=== PATIENT | male | born 1960 | race Two or more races ===

== ENCOUNTER 2023-12-27 16:35 | Emergency (ER) | payer OTHER ==
[~2023-12-27] VITALS: Ht 170.2 cm; Wt 83.2 kg
[2023-12-27] MEDS ORDERED: IOHEXOL 350 MG/ML 100 ML VIAL ONE (17:14)
[2023-12-27] MEDS ORDERED: SODIUM CHLORIDE 0.9% 100 ML ONE (17:14)
[2023-12-27] MEDS ORDERED: 0.9% SODIUM CHLORIDE 10 ML SYRINGE IVP PRN (17:15)
[2023-12-27 17:35] VITALS: TEMP 98.4
[2023-12-27 17:46] LABS: BASOPHILS % (AUTO) 0.4 % (0.0-2.0); EOSINOPHILS % (AUTO) 1.2 % (1.0-6.0); HEMOGLOBIN 15.2 g/dL (13.5-17.5); LYMPHOCYTES # (AUTO) 1.5 K/uL (1.0-4.8); LYMPHOCYTES % (AUTO) 10.5 % (22.0-44.0); MEAN CORPUSCULAR HEMOGLOBIN 31.7 pg (26.0-34.0); MEAN CORPUSCULAR HGB CONC 34.4 G/dL (31.0-37.0); MEAN CORPUSCULAR VOLUME 92 fL (80-100); MONOCYTES % (AUTO) 7.2 % (2.0-9.0); NEUTROPHILS # (AUTO) 11.7 K/uL (1.8-7.7); NEUTROPHILS % (AUTO) 80.7 % (40.0-70.0); PLATELET COUNT (AUTO) 243 K/uL (150-450); RED BLOOD CELL COUNT(AUTO) 4.79 MIL/uL (4.50-5.90); RED CELL DISTRIBUTION WIDTH 13.7 % (11.5-14.5); WHITE BLOOD COUNT (AUTO) 14.5 K/uL (4.5-11.0)
[2023-12-27 17:49] LABS: ANION GAP 9 mmol/L (8-16); CALCIUM, TOTAL 9.5 mg/dL (8.8-10.5); CARBON DIOXIDE 28 mmol/L (22-29); CHLORIDE 100 mmol/L (98-107); GLOMERULAR FILTR. RATE CALC > 60 mL/min (>60); GLUCOSE,RANDOM 176 mg/dL (70-110); POTASSIUM 3.7 mmol/L (3.5-5.1); SODIUM SERUM 137 mmol/L (136-145); UREA NITROGEN, BLOOD 8 mg/dL (7-18)
[2023-12-27] MEDS: PIPERACILLIN/TAZO 3.375 GM/D5W 50 ML IV ONE (17:53)
[2023-12-27] MEDS: SODIUM CHLORIDE 0.9% 1,000 ML IV ONE (17:53)
[2023-12-27] MEDS: ACETAMINOPHEN 500 MG TABLET PO ONE (17:53)
[2023-12-27] MEDS: KETOROLAC TROMETHAMINE 30 MG/ML VIAL IVP ONE (17:54)
[2023-12-27 18:13] LABS: ALANINE AMINOTRANSFERASE 20 U/L (12-78); ALKALINE PHOSPHATASE 85 U/L (46-116); ASPARTATE AMINOTRANSFERASE 13 U/L (15-37); BILIRUBIN,TOTAL 0.9 mg/dL (0.1-1.0); CREATINE KINASE, TOTAL ONLY 85 U/L (39-308)
[2023-12-27] MEDS: VANCOMYCIN HCL 1.25 GM in DEXTROSE 5%-WATER 250 ML IV ONE (18:16)
[2023-12-27 18:49] VITALS: BP 150/98; PULSE 72; RESP 16
[2023-12-27 18:53] LABS: COVID AG,FIA SOURCE NASAL SWAB
[2023-12-27 20:00] LABS: SARS-COV2 (COVID) ANTIGEN,FIA Negative (Negative)
[2023-12-27] MEDS: MORPHINE SULFATE 2 MG/ML SYRINGE IVP ONE (22:03)
[2023-12-28] MEDS: MORPHINE SULFATE 4 MG/ML SYRINGE IVP ONE (02:25)
[2023-12-28] MEDS: ONDANSETRON HCL 4 MG/2 ML VIAL IVP ONE (02:25)
== END 2023-12-28 03:25 | disposition left against medical advice (07) ==
LOC: EMS 16:44
DX: J34.0 Abscess, furuncle and carbuncle of nose (principal); E11.9 Type 2 diabetes mellitus without complications; Z20.822 Contact with and (suspected) exposure to COVID-19
CPT/HCPCS: 99285; 96365; 70487; 96375 ×2; 96366; 87426; 80053; 82550; 83605; 85025; 87040; 36415; 96376; 96368; 84145; J1885; J2270 ×2; J2543; J3370; Q9967; J7060; J7030; J7050; J2405